=== PATIENT | female | born 1940 | race Caucasian/White ===

== ENCOUNTER → 2017-06-26 | Outpatient (CLI) | payer MEDICARE ==
[~2017-06-26] MED LIST: ANEXSIA 5/325 M1 TA1 PO; COREG3.125 MG PO; COUMADIN2.5 MG PO; COUMADIN5 MG PO; COUMADIN6 MG PO; ESTRADIOL0.5 MG PO; KEFLEX500 M1 PO; LORTAB 10-5001 EACH PO; LOSARTAN POTAS100 MG PO; NORVASC PO; PACERONE100 MG PO; PERCOCET5/325 PO; VOLTAREN50 MG PO
--- NOTE | ~2017-06-26 | CR243 ---
[facility] A Service of [facility] RADIOLOGY TEXT RESULTS PATIENT: SALMA YU LOCATION: [facility] : 38 UNIT #: [id number] AGE: [address]: MASON HOFF SEX: F ORDER DR: [id number] [facility] [address] [place], [place] [address] [id number] O MR#: [id number] Acc #: [id number] NAME: SALMA YU : 1940 SEX: F STUDY DATE/TIME: 06/26/2017 10:10 UNIT: [facility] ROOM: STUDY DESCRIPTION: CR Thoracic Spine 3 Views Attending Physician: Beth Ospina Referring Physician: Beth Ospina Ordering Physician: Beth Ospina Primary Care Physician: Judy Delgado M.D. MEDICAL IMAGING REPORT This report is preliminary unless electronic signature is present EXAM Thoracic spine series HISTORY Thoracic pain mid and lower back over the past 4 years, progressively worsening. TECHNIQUE 3 views of the thoracic spine were obtained. FINDINGS Alignment is satisfactory. Vertebral body height is preserved. There are mild degenerative changes in mid thoracic discs. There is no evidence of fracture or bone destruction. The pedicles are intact at each level and no paraspinous masses are seen. IMPRESSION Mild mid-thoracic degenerative disc disease. No acute bony abnormalities are seen. Dictated by... Jose Antonio Hidalgo M.D. THIS IS AN ELECTRONICALLY VERIFIED REPORT Jose Antonio Hidalgo M.D. at 06/27/2017 3:40 PM Tara TD: 06/26/2017 15:02 JOB #: [id number] MEDICAL IMAGING REPORT Page 1 of 1 COPY
--- NOTE | ~2017-06-26 | CR181 ---
[facility] A Service of [facility] RADIOLOGY TEXT RESULTS PATIENT: SALMA YU LOCATION: [facility] : 38 UNIT #: [id number] AGE: [address]: MASON HOFF SEX: F ORDER DR: [id number] [facility] [address] [place], [place] [address] [id number] O MR#: [id number] Acc #: [id number] NAME: SALMA YU : 1940 SEX: F STUDY DATE/TIME: 06/26/2017 10:10 UNIT: [facility] ROOM: STUDY DESCRIPTION: CR Lumbar Spine 2 or 3 Views Attending Physician: Beth Ospina Referring Physician: Beth Ospina Ordering Physician: Beth Ospina Primary Care Physician: Judy Delgado M.D. MEDICAL IMAGING REPORT This report is preliminary unless electronic signature is present EXAM Lumbar spine series HISTORY Mid and lower back pain over the past 4 years progressively worsening. TECHNIQUE Three views of the lumbar spine were obtained. FINDINGS Alignment is satisfactory. Degenerative changes are seen at all lumbar discs with mild disc space narrowing. Osteophyte formation is seen anteriorly at L1-L2 predominately and to a lesser extent at L2-3 and L3-4. Lower lumbar facet hypertrophy is noted at L3-4, L4-5 and L5-S1, most prominent at L5-S1 on the left. There is a very mild generalized lumbar levoscoliosis. No fractures or other acute bony changes are seen. IMPRESSION Minimal generalized lumbar levoscoliosis. Generally moderate degenerative changes in the lumbar discs as described above with lower lumbar facet arthropathy, most prominent at L5-S1 on the left. Dictated by... Jose Antonio Hidalgo M.D. THIS IS AN ELECTRONICALLY VERIFIED REPORT Jose Antonio Hidalgo M.D. at 06/27/2017 3:40 PM Nathaniel TD: 06/26/2017 15:04 JOB #: [id number] MEDICAL IMAGING REPORT [facility] A Service of [facility] RADIOLOGY TEXT RESULTS PATIENT: SALMA YU LOCATION: [facility] : 38 UNIT #: [id number] AGE: [address]: MASON HOFF SEX: F ORDER DR: Page 1 of 1 COPY
== END | disposition home or self-care (01) ==
LOC: CRAD 09:59
DX: M54.5 Low back pain (principal); M54.6 Pain in thoracic spine; M51.34 Other intervertebral disc degeneration, thoracic region; M41.9 Scoliosis, unspecified; M47.896 Other spondylosis, lumbar region; M46.96 Unspecified inflammatory spondylopathy, lumbar region; M46.97 Unspecified inflammatory spondylopathy, lumbosacral region
CPT/HCPCS: 72072; 72100